=== PATIENT | female | born 1980 | race Caucasian/White ===

== ENCOUNTER 2018-12-01 08:07 | Day surgery (SDC) | payer MEDICAID ==
[~2018-12-01 08:07] MED LIST: ACETAMINOPHEN 1,000 MG/100 ML BTL IV ONE
[2018-12-01] MEDS ORDERED: FENTANYL PF 100MCG/2ML VIAL IV ONE (08:08)
[2018-12-01] MEDS ORDERED: PROPOFOL 10 MG/ML VIAL IV ONE (08:08)
[2018-12-01] MEDS ORDERED: LIDOCAINE 2% MDV (20MG/ML) 20ML VIAL IV ONE (08:08)
[2018-12-01] MEDS ORDERED: BUPIVACAINE 0.25% W/EPI MPF 30ML VIAL IVP ONE (08:08)
[2018-12-01] MEDS ORDERED: HYDROCODONE/APAP 5/325MG TABLET PO ONE (08:08)
[2018-12-01] MEDS ORDERED: MIDAZOLAM HCL 2MG/2ML VIAL IV ONE (08:08)
--- NOTE | 2018-12-02 08:50 | Operative Note ---
DATE OF SURGERY: 12/01/2018 Surgeon: Barron Hawley DO PREOPERATIVE DIAGNOSIS: Scalp mass. POSTOPERATIVE DIAGNOSIS: Scalp mass. OPERATION: Wide excision of scalp mass. Indication: The patient is a 30-year-old female who has had a recurring infected sebaceous cyst on her scalp. We discussed excision. Risks, benefits, and alternatives were discussed. Risks include bleeding, infection, recurrence. She understood this fully. Thereafter, consent was signed and questions answered. PROCEDURE: The patient was taken to the operating room and placed in a supine position. Local IV sedation was given per the department of anesthesia. The patient's scalp was prepped and draped in the usual fashion. The area around the mass was anesthetized with a total of 8 mL of 0.25% Sensorcaine with epinephrine. An elliptical incision was made around the mass incorporating the puncta. This was carried down to the capsule of a large sebaceous cyst. This was dissected free from the surrounding tissue with #15 scalpel blade. The capsule was not ruptured. This was then passed off the field. Hemostasis was achieved with cautery. The wound was closed with 3-0 nylon. She was taken to the recovery room in satisfactory condition. FINDINGS AT THE TIME OF SURGERY: A 3 cm mass into the subcu. CC: MD LINDA Pena
== END 2018-12-01 11:15 | disposition home or self-care (01) ==
LOC: SUR 08:07
PROVIDERS: ATTEND Surgery
DX: L72.11 Pilar cyst (principal); J45.909 Unspecified asthma, uncomplicated
CPT/HCPCS: 21012; 00300; 81025; J3010